=== PATIENT | female | born 1985 | race African-American/Black ===

== ENCOUNTER 2021-12-31 06:05 | Emergency (ER) | payer OTHER, SELFPAY ==
[2021-12-31 06:11] VITALS: BP 122/71; PULSE 118; RESP 20; TEMP 37.6; O2SAT 100
--- NOTE | 2021-12-31 07:00 | ED.GENADULT ---
HPI - General Adult General Chief complaint: Unspecified Stated complaint: left neck swelling/pain/difficulty swallowing Time Seen by Provider: 12/31/21 06:44 History of Present Illness HPI narrative: Sore throat for last 2 days, son recently diagnosed with strep throat. Has been taking the Mucinex at home. No nausea or vomiting, some pain with swallowing but no hoarse voice. Related Data Allergies Allergy/AdvReac Type Severity Reaction Status Date / Time No Known Allergies Allergy Verified 12/31/21 06:14 Review of Systems Review of Systems: CONST: Fever HEAD: Mild headache ENT: sore throat C/V: No chest pain RESP: No cough GI: No nausea M/S: No muscle aches SKIN: No rash. NEURO: [No focal numbness or weakness] PSYCH: [No depression] [facility] Past Medical History Medical History (Updated 12/31/21 @ 07:54 by Margi Dotson MD) No active medical problems Surgical History Surgical History (Updated 12/31/21 @ 07:07 by Margi Dotson MD) History of tubal ligation Exam Narrative: EXAMINATION OF ORGAN SYSTEMS/BODY AREAS: Constitutional: Vital signs per nursing GENERAL:[No acute distress, non-toxic appearing.] HEAD: Normal with no signs of head trauma. EYES: EOMI, conjunctiva normal ENT: Pharyngeal erythema/tonsillar exudates LUNGS: Nonlabored breathing. HEART: Tachycardic ABD: [Soft], [nontender to palpation] EXT: Normal range of motion SKIN: [No rashes or lesions.] NEURO: [Alert and oriented x 3. No gross focal sensory or strength deficits.] PSYCH: Normal affect Course Course Emergency Course: 36-year-old female presenting with sore throat and chills, exposure to strep, vital signs show tachycardia, I suspect likely strep versus other URI, doubt any deeper infection with normal dentition, no trismus, no other concern for airway compromise. Patient given Toradol and Decadron, strep swab is positive she is started on antibiotics and should followup with PCP. Vital Signs Vital signs: Vital Signs Temperature 99.6 F 12/31/21 06:11 Pulse Rate 118 H 12/31/21 06:11 Respiratory Rate 20 12/31/21 06:11 Blood Pressure 122/71 12/31/21 06:11 Pulse Oximetry 100 12/31/21 06:11 Temperature 99.6 F 12/31/21 06:11 Pulse Rate 118 H 12/31/21 06:11 Respiratory Rate 20 12/31/21 06:11 Blood Pressure 122/71 12/31/21 06:11 Pulse Oximetry 100 12/31/21 06:11 Medical Decision Making Vital Signs Vital Signs: Vital Signs Temperature 99.6 F 12/31/21 06:11 Pulse Rate 118 H 12/31/21 06:11 Respiratory Rate 20 12/31/21 06:11 Blood Pressure 122/71 12/31/21 06:11 Pulse Oximetry 100 12/31/21 06:11 Temperature 99.6 F 12/31/21 06:11 Pulse Rate 118 H 12/31/21 06:11 Respiratory Rate 20 12/31/21 06:11 Blood Pressure 122/71 12/31/21 06:11 Pulse Oximetry 100 12/31/21 06:11 Lab Data Labs: Strep Screen Positive Group A Strep *(Reference Range: Negative)* Discharge Plan Discharge Clinical Impression: Strep pharyngitis Patient Disposition: Home, Self-Care Condition: Stable Instructions: Antibiotic Form, Strep Throat (ED) Prescriptions: New amoxicillin 500 mg capsule 500 mg PO Q12H Qty: 20 RF: 0 Follow-up/Referrals: PHYSICIAN,FINANCIAL ADVISOR [Primary Care Provider] -
[2021-12-31] MEDS: DEXAMETHASONE 2 MG TABLET 10 MG PO (07:14)
[2021-12-31] MEDS: KETOROLAC 30 MG/ML VIAL (*BKC) IM (07:16)
[2021-12-31] MEDS: AMOXICILLIN 500 MG CAPSULE PO (08:30)
[2021-12-31 08:59] VITALS: BP 119/80; PULSE 86; RESP 18; O2SAT 98
== END 2021-12-31 09:01 | disposition home or self-care (01) ==
PROVIDERS: Emergency Provider Emergency Medicine
DX: J02.0 Streptococcal pharyngitis (principal)
CPT/HCPCS: 87880; 96372; 99283; A9270; J1885; J8540